=== PATIENT | male | born 1995 | race Caucasian/White ===

== ENCOUNTER 2021-05-04 14:05 | Emergency (ER) | payer BC, SELFPAY ==
[~2021-05-04] VITALS: Ht 200.7 cm; Wt 136.1 kg
[2021-05-04 14:24] VITALS: BP_SYST 134
--- NOTE | 2021-05-04 14:36 | NUR ---
VICTORIANO Enriquez at bedside examining patient.
--- NOTE | 2021-05-04 14:36 | NUR ---
Patient to ER bed tent 1 to gown for evaluation. Side rails up.
--- NOTE | 2021-05-04 14:40 | NUR ---
Pt presents to ED c/o throat pain and hemoptysis.Pt reports COVID + results yesterday.PT afebrile,normotensive and O2 sat 97% at time of triage.
--- NOTE | 2021-05-04 14:55 | NUR ---
Patient to ER bed 5 to gown for evaluation. Side rails up.
[2021-05-04 15:03] LABS: BASOPHILS # (AUTO) 0.2 K/uL (0.0-0.2); BASOPHILS % (AUTO) 3.4 % (0.0-2.0); EOSINOPHILS # (AUTO) 0.1 K/uL (0.0-0.4); EOSINOPHILS % (AUTO) 2.4 % (0.0-4.0); HEMATOCRIT 46.5 % (36-54); HEMOGLOBIN 15.9 g/dL (14.0-18.0); LYMPHOCYTES # (AUTO) 1.7 K/uL (1.0-5.5); LYMPHOCYTES % (AUTO) 29.3 % (20.5-51.5); MEAN CORPUSCULAR HEMOGLOBIN 29 pg (27-31); MEAN CORPUSCULAR HGB CONC 34 % (32-36); MEAN CORPUSCULAR VOLUME 84 fL (79.0-98.0); MONOCYTES # (AUTO) 0.5 K/uL (0.0-1.0); MONOCYTES % (AUTO) 8.5 % (1.7-9.3); NEUTROPHILS # (AUTO) 3.3 K/uL (1.8-7.7); NEUTROPHILS % (AUTO) 56.4 % (40.0-70.0); PLATELET COUNT (AUTO) 199 K/uL (130-430); RED BLOOD CELL COUNT(AUTO) 5.51 MIL/uL (4.2-6.2); WHITE BLOOD COUNT (AUTO) 5.9 K/uL (4.8-10.8)
[2021-05-04 15:14] LABS: ANION GAP 9 (5-15); CHLORIDE 98 mmol/L (98-107); CREATININE 1.12 mg/dL (0.55-1.30); GFR AFRICAN AMERICAN 104 mL/min (>90); GLUCOSE 99 mg/dL (70-99); POTASSIUM 4.1 mmol/L (3.5-5.1); SODIUM SERUM 136 mmol/L (136-145); UREA NITROGEN, BLOOD 9 mg/dL (8-21)
[2021-05-04] MEDS ORDERED: NACL 0.9% 1,000 ML IV ONE (15:15)
--- NOTE | 2021-05-04 15:15 | NUR ---
# 20 gauge angiocath placed to RAC. Use of asceptic technique. Opsite placed over site. Blood return noted. Flushed with 10 cc of normal saline. No evidence of infiltration noted. Patient tolerated well.
[2021-05-04 15:23] LABS: ALANINE AMINOTRANSFERASE 60 U/L (12-78); ASPARTATE AMINOTRANSFERASE 39 U/L (10-37); BILIRUBIN,DIRECT 0.2 mg/dL (0.0-0.3); TOTAL BILIRUBIN 0.7 mg/dL (0.0-1.0)
[2021-05-04] MEDS ORDERED: ACET325T PO (15:54)
[2021-05-04] MEDS ORDERED: IBUP-1968 PO (15:54)
[2021-05-04 16:18] VITALS: BP_SYST 134
== END 2021-05-04 16:19 | disposition home or self-care (01) ==
LOC: SED 14:05
DX: U07.1 COVID-19 (principal); R11.10 Vomiting, unspecified; R19.7 Diarrhea, unspecified; M79.18 Myalgia, other site; R04.2 Hemoptysis; R13.10 Dysphagia, unspecified; Z79.899 Other long term (current) drug therapy
CPT/HCPCS: 36415; 71045; 80048; 80076; 83880; 84484; 85025; 85379; 93005; 96360; 99285; J7030

== ENCOUNTER 2021-05-07 22:23 | Inpatient (IN) | payer BC, SELFPAY ==
[~2021-05-07] VITALS: Ht 200.7 cm; Wt 139.9 kg
[~2021-05-07 22:23] MED LIST: ACET325T PO; IBUP-1968 PO
--- NOTE | 2021-05-07 22:39 | NUR ---
Patient to ER bed 07 to gown for evaluation. Side rails up.
[2021-05-07 22:40] VITALS: BP_SYST 151
--- NOTE | 2021-05-07 22:45 | NUR ---
PT PRESENTS TO THE ED WITH FEVER AND MOUTH BLISTERS. PT STATES HE HAD COVID TEN DAYS AGO. PT CONNECTED TO MONITOR AND AWAITING MD ASSESSMENT AND ORDERS
[2021-05-07] MEDS ORDERED: HYDROXYCHLOROQUINE SULFATE 200 MG TABLET PO ONE (23:00)
[2021-05-07] MEDS ORDERED: DEXAMETHASONE SOD PHOSPHATE 4 MG/ML VIAL IVP ONE (23:00)
[2021-05-07] MEDS ORDERED: AZITHROMYCIN 500 MG in NS 250 ML IV ONE (23:00)
[2021-05-07] MEDS ORDERED: ACYCLOVIR IV 750 MG in D5W 100 ML IV ONE (23:00)
[2021-05-07] MEDS ORDERED: AZITHROMYCIN 500 MG/VIAL (ZITHROMAX) IV ONE (23:24)
[2021-05-07] MEDS ORDERED: ACYCLOVIR SODIUM 50 MG/ML VIAL IV ONE (23:26)
--- NOTE | 2021-05-07 23:30 | NUR ---
MD AT BEDSIDE FOR ASSESSMENT. LABS AND IVABX ORDERED. PIV STARTED AND MEDS STARTED. PT REMAINS FEBRILE.
--- NOTE | 2021-05-08 00:15 | NUR ---
PT STATES HE FEELS NAUSOUS AND IS DIAPHORETIC. IVABX STOPPED AND MD NOTIFIED. MD ADVISED TO CONTINUE IVABX. CTA WITH CONTRAST ORDERED. PT REMAINS CONNECTED TO MONITOR.
[2021-05-08] MEDS ORDERED: IOHEXOL 350 mgI/mL, 150 ML INFUS..BTL IV ONE (00:23)
[2021-05-08] MEDS ORDERED: HYDROXYCHLOROQUINE SULFATE 200 MG TABLET ONE (00:34)
[2021-05-08 00:37] LABS: BASOPHILS % (AUTO) 0.2 % (0.0-2.0); EOSINOPHILS # (AUTO) 0.2 K/uL (0.0-0.4); EOSINOPHILS % (AUTO) 2.6 % (0.0-4.0); HEMATOCRIT 43.3 % (36-54); LYMPHOCYTES % (AUTO) 22.9 % (20.5-51.5); MEAN CORPUSCULAR HEMOGLOBIN 29 pg (27-31); MEAN CORPUSCULAR HGB CONC 35 % (32-36); MEAN CORPUSCULAR VOLUME 85 fL (79.0-98.0); MONOCYTES # (AUTO) 1.1 K/uL (0.0-1.0); MONOCYTES % (AUTO) 12.8 % (1.7-9.3); NEUTROPHILS # (AUTO) 5.3 K/uL (1.8-7.7); NEUTROPHILS % (AUTO) 61.5 % (40.0-70.0); PLATELET COUNT (AUTO) 267 K/uL (130-430); WHITE BLOOD COUNT (AUTO) 8.6 K/uL (4.8-10.8)
[2021-05-08 01:00] LABS: ALBUMIN 3.7 g/dL (3.4-4.8); CALCIUM 9.1 mg/dL (8.4-11.0); CREATININE 0.93 mg/dL (0.55-1.30); TOTAL BILIRUBIN 0.7 mg/dL (0.0-1.0)
--- NOTE | 2021-05-08 01:00 | NUR ---
PT NO LONGER DIAPHORETIC. VITAL SIGNS STABLE. MEDS GIVEN. AWAITING FURTHER ORDERS FROM MD. PT WILL BE ADMITTED. BED REQUESTED
[2021-05-08 01:03] LABS: FIBRINOGEN 470 mg/dL (200-400)
[2021-05-08] MEDS ORDERED: ENOXAPARIN SODIUM 100 MG/ML SYRINGE SUBCUT ONE (02:00)
--- NOTE | 2021-05-08 02:05 | NUR ---
[facility] Ad[facility] to [facility] unit. Will go to room TBD. Belongings list completed. Complete and up to date summary report printed. SBAR report to be given at bedside with opportunity for questions.
--- NOTE | 2021-05-08 03:20 | NUR ---
PT BED ASSIGNED TO ROOM 115 A. VITAL SIGNS STABLE. REMAINS ON MONITOR
--- NOTE | 2021-05-08 04:07 | NUR ---
ADMISSION: The patient, VARUN PRATT, 25 y/o, M admitted by SNOW MEDINA MD, was given written information regarding hospital policies, unit procedures and contact persons. Valuables were checked and pt was oriented to his room and surrounding .
[2021-05-08 04:10] VITALS: BP_SYST 152
[2021-05-08] MEDS ORDERED: HYDROcodone/ACETAMIN 10-325 MG TAB PO PRN (05:15)
[2021-05-08] MEDS ORDERED: HYDROcodone/ACETAMIN 5-325 MG TAB (NORCO/ VICODIN) PO PRN (05:15)
[2021-05-08] MEDS ORDERED: ALBUTEROL SULFATE 0.083% 2.5 MG/3 ML VIAL.NEB INH PRN (05:15)
[2021-05-08] MEDS ORDERED: ACETAMINOPHEN 325 MG TABLET PO PRN (05:15)
[2021-05-08] MEDS ORDERED: NALOXONE HCL 0.4 MG/ML AMP (NARCAN) IVP PRN ×2 (05:15)
--- NOTE | 2021-05-08 05:49 | NUR ---
CONSULTATION PAGED/CALLED Reason for Consultation: COVID PNA Person Who was Notified: CINDY Consulting Physician: JUDAH Carpenter [employer] Specialty: Ordering Physician: GERARD
[2021-05-08] MEDS ORDERED: cefTRIAXone 1 GM VIAL ONE (06:02)
[2021-05-08 06:03] VITALS: BP_SYST 152
[2021-05-08] MEDS ORDERED: ALBUTEROL MDI INHALATION 8 GM INH INH PRN (06:15)
--- NOTE | 2021-05-08 06:45 | NUR ---
PT IS AWAKE AND RESTING COMFORTABLY IN BED. ALL PT'S NEEDS WERE ATTENDED TO. WILL ENDORSE TO DAY SHIFT NURSE.
--- NOTE | 2021-05-08 07:29 | NUR ---
CONSULTATION PAGED/CALLED Reason for Consultation: [] COVID Person Who was Notified: [] AGA Consulting Physician: [] DR BRIAN Assistant Center Manager Specialty: [] PULMO Ordering Physician: [] DR MEDINA
[2021-05-08 08:00] VITALS: BP_SYST 143
--- NOTE | 2021-05-08 08:00 | NUR ---
AM ASSESSMENT. PT ALERT, AFEBRILE, NO COMPLAINTS OF DISCOMFORTS, BROUGHT IN HIS FOOD TRAY, WILL CONTINUE TO MONITOR.
[2021-05-08] MEDS ORDERED: DEXAMETHASONE SOD PHOSPHATE 4 MG/ML VIAL IVP SCH (09:00)
[2021-05-08] MEDS: ENOXAPARIN SODIUM 30 MG/0.3 ML SYRINGE SUBCUT SCH ×2 (09:10→22:24)
--- NOTE | 2021-05-08 09:10 | NUR ---
INFECTION. WHITISH THICK ORAL SECRETIONS NOTED, LIPS MILDLY SWOLLEN, PT STATED THAT HE HAD SEEN THIS STARTED SINCE YESTERDAY, WILL CONTINUE TO MONITOR.
[2021-05-08] MEDS ORDERED: CHOLECALCIFEROL (VITAMIN D3) 5,000 UNIT TABLET PO ONE (12:00)
[2021-05-08 12:39] VITALS: BP_SYST 161
[2021-05-08] MEDS: ACYCLOVIR 400 MG TABLET PO SCH ×2 (13:51→22:22)
--- NOTE | 2021-05-08 14:30 | NUR ---
MEDS NEW ORDERS RECEIVED FROM DR SO.
[2021-05-08] MEDS: NYSTATIN 500,000 UNITS/5 ML UDC PO SCH (17:27)
[2021-05-08 18:09] VITALS: BP_SYST 153
[2021-05-08 20:15] VITALS: BP_SYST 146
--- NOTE | 2021-05-08 20:48 | NUR ---
Remdesivir Remdesivir given, reviewed side effects and he verbalized understanding. Infusing well, tolerating.
[2021-05-08] MEDS: AZITHROMYCIN 500 MG in NS 250 ML IV SCH (22:21)
[2021-05-08] MEDS: ASCORBIC ACID 500 MG TABLET PO SCH (22:22)
[2021-05-09] VITALS: BP_SYST 154
[2021-05-09] MEDS: NYSTATIN 500,000 UNITS/5 ML UDC PO SCH ×5 (01:10→23:19)
[2021-05-09] MEDS: ACYCLOVIR 400 MG TABLET PO SCH ×3 (06:52→22:38)
[2021-05-09 07:24] LABS: BASOPHILS % (AUTO) 0.3 % (0.0-2.0); EOSINOPHILS # (AUTO) 0.2 K/uL (0.0-0.4); EOSINOPHILS % (AUTO) 2.9 % (0.0-4.0); HEMATOCRIT 40.8 % (36-54); HEMOGLOBIN 14.2 g/dL (14.0-18.0); LYMPHOCYTES # (AUTO) 2.5 K/uL (1.0-5.5); MEAN CORPUSCULAR HEMOGLOBIN 29 pg (27-31); MEAN CORPUSCULAR HGB CONC 35 % (32-36); MEAN CORPUSCULAR VOLUME 84 fL (79.0-98.0); MONOCYTES # (AUTO) 1.1 K/uL (0.0-1.0); MONOCYTES % (AUTO) 13.1 % (1.7-9.3); NEUTROPHILS # (AUTO) 4.3 K/uL (1.8-7.7); NEUTROPHILS % (AUTO) 52.7 % (40.0-70.0); PLATELET COUNT (AUTO) 261 K/uL (130-430); RED BLOOD CELL COUNT(AUTO) 4.85 MIL/uL (4.2-6.2); RED CELL DISTRIBUTION WIDTH 12.6 % (9.0-15.0); WHITE BLOOD COUNT (AUTO) 8.1 K/uL (4.8-10.8)
[2021-05-09 08:00] VITALS: BP_SYST 133; BP_SYST 143
--- NOTE | 2021-05-09 08:00 | NUR ---
OPENING NOTES ALERT AND ORIENTED. NO SHORTNESS OF BREATH ON ROOM AIR. REPORTS PAIN DUE TO SORES AROUND THE MOUTH. ASSISTED WITH ORAL CARE. IV ACCESS INTACT. AMBULATORY. SERVED WITH BREAKFAST. EXPLAINED NEED FOR CONTINUED ISOLATION, PATIENT VERBALIZED UNDERSTANDING. FALL AND SAFETY CHECKS DONE. CALL LIGHT WITHIN REACH. WILL MONITOR.
[2021-05-09 08:10] LABS: ALBUMIN 3.3 g/dL (3.4-4.8); CALCIUM 9.2 mg/dL (8.4-11.0); CREATININE 0.83 mg/dL (0.55-1.30); POTASSIUM 4.7 mmol/L (3.5-5.1); TOTAL BILIRUBIN 0.5 mg/dL (0.0-1.0)
[2021-05-09] MEDS: ASCORBIC ACID 500 MG TABLET PO SCH ×2 (08:23→20:41)
[2021-05-09] MEDS: CHOLECALCIFEROL (VITAMIN D3) 5,000 UNIT TABLET PO SCH (08:23)
[2021-05-09] MEDS: ENOXAPARIN SODIUM 30 MG/0.3 ML SYRINGE SUBCUT SCH ×2 (08:24→20:41)
[2021-05-09] MEDS ORDERED: LIDOCAINE JELLY 5 ML TUBE MM ONE (09:30)
--- NOTE | 2021-05-09 10:35 | NUR ---
THROAT CULTURE SAMPLE COLLECTED AND BROUGHT TO THE LAB. PATIENT VERBALIZED UNDERSTANDING OF THE TEST. SAFETY CHECKS DONE. WILL MONITOR.
[2021-05-09 11:49] LABS: C-REACTIVE PROTEIN QUANT 1.5 mg/dL (0-0.5)
[2021-05-09 12:00] VITALS: BP_SYST 154
--- NOTE | 2021-05-09 13:45 | NUR ---
ROUNDS ORAL MEDICATION GIVEN. PATIENT EXPRESSED RELIEF FROM MOUTH PAIN AFTER THE MYCOSTATIN WASH AND LIDOCAINE ORAL GEL. SAFETY CHECKS DONE. WILL MONITOR.
[2021-05-09 16:00] VITALS: BP_SYST 142
--- NOTE | 2021-05-09 18:31 | NUR ---
CLOSING NOTES RESTING. PAIN AROUND THE MOUTH IS CONTROLLED AT THIS TIME. NO SHORTNESS OF BREATH ON ROOM AIR. IV PATENT. ALL NEEDS MET. SAFETY CHECKS DONE. CALL LIGHT WITHIN REACH. WILL ENDORSE TO NIGHT NURSE.
[2021-05-09 19:35] VITALS: BP_SYST 141
--- NOTE | 2021-05-09 19:35 | NUR ---
INITIAL NOTE AT INITIAL ASSESSMENT, PATIENT IS RESTING IN BED, STABLE, NO SIGNS OF RESPIRATORY DISTRESS. PATIENT VERBALIZES NO PAIN. PLAN OF CARE FOR THE EVENING IS COMMUNICATED WITH THE PATIENT. PATIENT DEMONSTRATES CORRECT USAGE OF CALL LIGHT AT THIS TIME. BED IS LOCKED, ALARMED, AND AT THE LOWEST LEVEL. FALL SAFETY EDUCATION PROVIDED. FALL, SAFETY, RESPIRATORY, AND COVID ISOLATION PRECAUTIONS WILL BE TAKEN THROUGHOUT THE SHIFT.
[2021-05-09] MEDS: AZITHROMYCIN 500 MG in NS 250 ML IV SCH (20:40)
--- NOTE | 2021-05-09 21:50 | NUR ---
MED PASS NOTE SCHEDULED MEDICATIONS GIVEN AT THIS TIME, PATIENT TOLERATED WELL. CALL LIGHT IS PLACED WITHIN REACH. BED IS LOCKED, ALARMED, AND AT THE LOWEST LEVEL.
--- NOTE | 2021-05-09 22:29 | NUR ---
COMMUNICATION W/ DR. PAPO BARROS PAGED AT THIS TIME FOR PATIENT'S REQUEST FOR COUGH SYRUP. DR. BARROS HAS GRANTED REQUEST, NEW ORDER GIVEN. ORDER READ BACK, VERIFIED, AND WILL BE GIVEN TO PATIENT ONCE PHARMACY APPROVES.
[2021-05-09] MEDS: guaiFENesin 200 MG/CODEINE 20 MG/ 10 ML UDC PO PRN (22:40)
[2021-05-10] VITALS: BP_SYST 144
--- NOTE | 2021-05-10 00:30 | NUR ---
FEVER PATIENT HAS FEVER OF 101.4, PRN TYLENOL GIVEN. WILL MONITOR FOR EFFECTIVENESS.
[2021-05-10] MEDS: NYSTATIN 500,000 UNITS/5 ML UDC PO SCH ×2 (05:47→12:26)
[2021-05-10] MEDS: ACYCLOVIR 400 MG TABLET PO SCH ×2 (05:47→15:07)
[2021-05-10] MEDS: guaiFENesin 200 MG/CODEINE 20 MG/ 10 ML UDC PO PRN (05:48)
--- NOTE | 2021-05-10 06:40 | NUR ---
CLOSING NOTE PATIENT'S FEVER WAS RESOLVED AFTER TYLENOL ADMINISTRATION DURING THE NIGHT, PATIENT SLEPT WELL THROUGHOUT THE SHIFT, NO SHORTNESS OF BREATH NOTED. AT THIS TIME, PATIENT IS RESTING IN BED, STABLE, NO SIGNS OF RESPIRATORY DISTRESS. CALL LIGHT IS WITHIN REACH. BED IS LOCKED, ALARMED, AND AT THE LOWEST LEVEL. FALL, SAFETY, RESPIRATORY, AND COVID ISOLATION PRECAUTIONS HAVE BEEN TAKEN THROUGHOUT THE SHIFT. WILL CONTINUE TO MONITOR UNTIL SHIFT REPORT IS GIVEN AT BEDSIDE TO AM NURSE.
[2021-05-10] MEDS: CHOLECALCIFEROL (VITAMIN D3) 5,000 UNIT TABLET PO SCH (08:04)
[2021-05-10] MEDS: ENOXAPARIN SODIUM 30 MG/0.3 ML SYRINGE SUBCUT SCH (08:04)
[2021-05-10] MEDS: ASCORBIC ACID 500 MG TABLET PO SCH (08:05)
[2021-05-10 10:14] LABS: ALBUMIN 3.4 g/dL (3.4-4.8); CALCIUM 8.9 mg/dL (8.4-11.0); CREATININE 0.93 mg/dL (0.55-1.30); POTASSIUM 4.1 mmol/L (3.5-5.1); TOTAL BILIRUBIN 0.4 mg/dL (0.0-1.0)
[2021-05-10] MEDS ORDERED: AZIT-62 PO (11:02)
[2021-05-10] MEDS ORDERED: APIX2.5T PO (11:02)
[2021-05-10 12:49] VITALS: BP_SYST 141
--- NOTE | 2021-05-10 13:37 | NUR ---
Case mgt: Faxed MD notification for CM assistance to schedule PT appointment to [facility] [phone] Addendum: 05/10/21 at 1347 by Lanette Chan RN Spoke with nurse Teixeira for clarification on case management notification--per Puneet, pt ambulates well independently--pt alert/oriented and he's able to make any follow up appointments needed--BERNADETTE GROVE
--- NOTE | 2021-05-10 15:35 | NUR ---
D/C Patient Patient given medication reconciliation form and D/C instructions. Exit Care provided. Patient verbalized understanding. MD discussed with patient the results and treatment provided. Ambulatory with steady gait for discharge to home. Patient in stable condition, ID band removed. IV catheter removed, intact and dressing applied, no active bleeding. Rx of Azithromycin + Eliquis given. Patient educated on pain management. All belongings sent with patient.
== END 2021-05-10 15:35 | disposition home or self-care (01) | DRG 871 ==
LOC: SED 22:23 → STU 05-08 02:05
PROVIDERS: ADMIT Internal Medicine Hospice and Palliative Medicine; ATTEND Internal Medicine Hospice and Palliative Medicine
PROC: XW033E5 Introduction of Remdesivir Anti-infective into Peripheral Vein, Percutaneous Approach, New Technology Group 5 (ICD-10-PCS; principal; 2021-05-08)
DX: A41.9 Sepsis, unspecified organism (principal); U07.1 COVID-19; J12.82 Pneumonia due to coronavirus disease 2019; B00.2 Herpesviral gingivostomatitis and pharyngotonsillitis; R74.01 Elevation of levels of liver transaminase levels; E66.9 Obesity, unspecified; Z68.34 Body mass index [BMI] 34.0-34.9, adult
CPT/HCPCS: 36415; 71045; 71275; 76376; 80053; 80176; 82728; 83605; 85025; 85379; 85384; 86140; 86694; 87040-TC; 93970; 96365; 96368; 96372; 96375; 99291; G0378; J0133; J0456; J0696; J1100; J1650; J7050; J7060; Q9967